=== PATIENT | female | born 1950 | race Caucasian/White ===

== ENCOUNTER 2019-09-10 04:27 | Emergency (ER) | payer MEDICARE, BC, OTHER ==
[~2019-09-10] VITALS: Ht 165.1 cm; Wt 74.8 kg
--- OUTSIDE RECORDS SUMMARY | ~2019-09-10 | XMS | Encounter Summary ---
Demographics + + + | Address | [address] | | | [place] [address] | + + + | Home Phone | | + + + | Preferred Language | Unknown | + + + | Marital Status | | + + + | Roman Catholic Affiliation | 1013 | + + + | Race | Unknown | + + + | Ethnic Group | Unknown | + + + Author + + + | Author | [facility] | | | and [place] | + + + | Organization | [facility] | | | and [place] | + + + | Address | Unknown | + + + | Phone | Unavailable | + + + Support + + +---------+ + | Name | Relationship | Address | Phone | + + +---------+ + | Darshan Duenas | ECON | Unknown | | + + +---------+ + Care Team Providers + +------+ + | Care Cath Lab Manager Name | Role | Phone | + +------+ + PCP | Unavailable | + +------+ + Encounter Details +--------+ + + + + | Date | Type | Department | Care Team | Description | +--------+ + + + + | 09/25/ | Hospital | [facility] | | | | 2000 - | Encounter | [facility] | | | | | | [address] | | | | 09/26/ | | [place] [id number] | | | | 2000 | | [phone] | | | +--------+ + + + + Social History + +-------+ +--------+------+ | Tobacco Use | Types | Packs/Day | Years | Date | | | | | Used | | + +-------+ +--------+------+ | Never Assessed | | | | | + +-------+ +--------+------+ + + + | Sex Assigned at | Date Recorded | | | | + + + | Not on file | | + + + + + + + | Job Start Date | Occupation | Industry | + + + + | Not on file | Not on file | Not on file | + + + + + + + + | Travel History | Travel Start | Travel End | + + + + + + | No recent travel history available. | + + documented as of this encounter Plan of Treatment Not on filedocumented as of this encounter Visit Diagnoses Not on filedocumented in this encounter"
--- OUTSIDE RECORDS SUMMARY | ~2019-09-10 | XMS | Encounter Summary ---
Demographics + + + | Address | [address] | | | [place] [address] | + + + | Home Phone | | + + + | Preferred Language | Unknown | + + + | Marital Status | | + + + | Holiness Affiliation | 1013 | + + + | Race | Unknown | + + + | Ethnic Group | Unknown | + + + Author + + + | Author | [facility] | | | and [place] | + + + | Organization | [facility] | | | and [place] [...] Team Providers + +------+ + | Care Drying Room Operator Name | Role | Phone | + +------+ + PCP | Unavailable | + +------+ + Encounter Details +--------+ + + + + | Date | Type | Department | Care Team | Description | +--------+ + + + + | 09/25/ | Hospital | [facility] | | | | 2000 - | Encounter | MED CTR MED ON[facility] | | | | | | [address] | | | | 09/26/ | | [place] [id number] | | | | 2000 | | [phone] | | | +--------+ + + + [...]
--- OUTSIDE RECORDS SUMMARY | ~2019-09-10 | XMS | Clinical Summary ---
Demographics + + + | Address | [address] | | | [place] [address] | + + + | Home Phone | | + + + | Preferred Language | Unknown | + + + | Marital Status | | + + + | Latter-Day Affiliation | 1013 | + + + | Race | Unknown | + + + | Ethnic Group | Unknown | + + + Author + + + | Author | [facility] | | | and [place] | + + + | Organization | [facility] | | | and [place] [...] Team Providers + +------+ + | Care Briquette Operator Name | Role | Phone | + +------+ + PCP | Unavailable | + +------+ + Allergies Not on File Medications Not on file Active Problems Not on file Social History + +-------+ +--------+------+ | Tobacco [...] recent travel history available. | + + Last Filed Vital Signs Not on file Plan of Treatment + + + + + | Health Maintenance | Due Date | Last Done | Comments | + + + + + | Vaccine: | | | | | Dtap/Tdap/Td (1 - | 1 | | | | Tdap) | | | | + + + + + | Vaccine: Zoster (1 | | | | | of 2) | 2 | | | + + + + + | Breast Cancer | | | | | Screening | 7 | | | + + + + + | Vaccine: | | | | | Pneumococcal 65+ (1 | 7 | | | | of 2 - PCV13) | | | | + + + + + | Vaccine: Influenza | | | | | (#1) | 9 | | | + + + + + Results Not on filefrom Last 3 Months"
--- OUTSIDE RECORDS SUMMARY | ~2019-09-10 | XMS | Clinical Summary ---
Demographics + + + | Address | [address] | | | [place] [address] | + + + | Home Phone | | + + + | Preferred Language | Unknown | + + + | Marital Status | | + + + | Mormonism Affiliation | 1013 | + + + | Race | Unknown | + + + | Ethnic Group | Unknown | + + + Author + + + | Author | [facility] | | | and [place] | + + + | Organization | [facility] | | | and [place] | [...] Team Providers + +------+ + | Care Therapy Director Name | Role | Phone | + [...]
[2019-09-10] MEDS ORDERED: FLUOXETINE HCL20 MG PO (04:51)
[2019-09-10] MEDS ORDERED: LISINOPRIL20 MG PO (04:52)
[2019-09-10] MEDS ORDERED: MELATONIN10 M2 PO (04:52)
[2019-09-10] MEDS ORDERED: PROPRANOLOL HCL80 M1 PO (04:53)
[2019-09-10] MEDS ORDERED: VITAMIN D32000 UNI1 PO (04:54)
[2019-09-10] MEDS ORDERED: LOPERAMIDE2 M1 PO (04:55)
== END 2019-09-10 07:33 | disposition home or self-care (01) ==
LOC: ED 04:27
DX: S00.31XA Abrasion of nose, initial encounter (principal); S00.81XA Abrasion of other part of head, initial encounter; W18.30XA Fall on same level, unspecified, initial encounter; Z79.899 Other long term (current) drug therapy; G30.9 Alzheimer's disease, unspecified
CPT/HCPCS: 70450; 72125; 90471; 90715; 99285-25